=== PATIENT | female | born 1985 ===

== ENCOUNTER 2018-02-16 10:04 | Emergency (ER) | payer SELFPAY ==
[~2018-02-16] VITALS: Ht 160 cm; Wt 63.5 kg
[2018-02-16] MEDS ORDERED: KETOROLAC 30 MG/ML VIAL IVP ONE (10:45)
[2018-02-16] MEDS ORDERED: fentaNYL INJECTION 100 MCG/2 ML AMP IVP ONE (10:45)
--- NOTE | 2018-02-16 10:49 | ED Abdominal Pain ---
General Stated Complaint: ABDOMINAL PAIN Source of Information: Patient Exam Limitations: No Limitations History of Present Illness Date Seen by Provider: Feb 16, 2018 Time Seen by Provider: 10:47 Initial Comments To ER with left lower quadrant abdominal pain that began yesterday. The pain radiates down the left leg when she is walking. She has severe pain with urination. She also states that she has troubles with constipation and feels as though when she has a bowel movement she needs to have another one but cannot get any more stool to come out. She denies fevers chills nausea or vomiting. No history of this and no injury. Timing/Duration: 1-2 Days Severity/Quality: Moderate Location: LLQ Radiation: No Radiation Associated Symptoms: No Nausea/Vomiting Allergies and Home Medications Allergies Coded Allergies: No Known Drug Allergies (Unverified , 02/16/18) Home Medications Phenazopyridine HCl 100 Mg Tablet, 100 MG PO TID Prescribed by: EVA DICKEY on 02/16/18 1121 Sulfamethoxazole/Trimethoprim 1 Each Tablet, 1 EACH PO BID Prescribed by: EVA DICKEY on 02/16/18 1121 Patient Home Medication List Home Medication List Reviewed: Yes Review of Systems Review of Systems Constitutional: see HPI; No chills, No fever EENTM: No Symptoms Reported Respiratory: No Symptoms Reported Cardiovascular: No Symptoms Reported Gastrointestinal: See HPI, Abdominal Pain, Constipated; Denies Diarrhea, Denies Nausea, Denies Vomiting Genitourinary: No Symptoms Reported Musculoskeletal: no symptoms reported Skin: no symptoms reported Psychiatric/Neurological: No Symptoms Reported Endocrine: No Symptoms Reported Physical Exam Vital Signs Vital Signs - First Documented 02/16/18 10:30 Temp 99.4 Pulse 98 Resp 16 B/P (MAP) 141/83 (102) Pulse Ox 100 O2 Delivery Room Air Capillary Refill : Height/Weight/BMI Height: '" Weight: lbs. oz. kg; BMI Method: General Appearance: WD/WN, no apparent distress HEENT: PERRL/EOMI, normal ENT inspection Neck: non-tender, full range of motion Respiratory: no respiratory distress, no accessory muscle use Gastrointestinal: normal bowel sounds, soft, tenderness (left suprapubic) Extremities: normal range of motion, non-tender Neurologic/Psychiatric: alert, normal mood/affect, oriented x 3 Skin: normal color Progress/Results/Core Measures Results/Orders Lab Results Laboratory Tests Test 02/16/18 10:45 02/16/18 10:49 Range/Units White Blood Count 9.2 4.3-11.0 10^3/uL Red Blood Count 4.22 L 4.35-5.85 10^6/uL Hemoglobin 13.1 11.5-16.0 G/DL Hematocrit 38 35-52 % Mean Corpuscular Volume 90 80-99 FL Mean Corpuscular Hemoglobin 31 25-34 PG Mean Corpuscular Hemoglobin Concent 34 32-36 G/DL Red Cell Distribution Width 12.4 10.0-14.5 % Platelet Count 351 130-400 10^3/uL Mean Platelet Volume 9.3 7.4-10.4 FL Neutrophils (%) (Auto) 78 H 42-75 % Lymphocytes (%) (Auto) 16 12-44 % Monocytes (%) (Auto) 5 0-12 % Eosinophils (%) (Auto) 0 0-10 % Basophils (%) (Auto) 0 0-10 % Neutrophils # (Auto) 7.1 1.8-7.8 X 10^3 Lymphocytes # (Auto) 1.5 1.0-4.0 X 10^3 Monocytes # (Auto) 0.5 0.0-1.0 X 10^3 Eosinophils # (Auto) 0.0 0.0-0.3 10^3/uL Basophils # (Auto) 0.0 0.0-0.1 10^3/uL Sodium Level 138 135-145 MMOL/L Potassium Level 3.5 L 3.6-5.0 MMOL/L Chloride Level 105 98-107 MMOL/L Carbon Dioxide Level 19 L 21-32 MMOL/L Anion Gap 14 5-14 MMOL/L Blood Urea Nitrogen 7 7-18 MG/DL Creatinine 0.69 0.60-1.30 MG/DL Estimat Glomerular Filtration Rate > 60 BUN/Creatinine Ratio 10 Glucose Level 117 H 70-105 MG/DL Calcium Level 9.8 8.5-10.1 MG/DL Corrected Calcium 8.5-10.1 MG/DL Total Bilirubin 0.6 0.1-1.0 MG/DL Aspartate Amino Transf (AST/SGOT) 22 5-34 U/L Alanine Aminotransferase (ALT/SGPT) 35 0-55 U/L Alkaline Phosphatase 126 40-136 U/L Total Protein 8.9 H 6.4-8.2 GM/DL Albumin 5.1 H 3.2-4.5 GM/DL Serum Test, Qualitative NEGATIVE NEGATIVE Urine Color THIERRY H Urine Clarity CLEAR Urine pH 6 5-9 Urine Specific Oak 1.020 1.016-1.022 Urine Protein 2+ H NEGATIVE Urine Glucose (UA) NEGATIVE NEGATIVE Urine Ketones 2+ H NEGATIVE Urine Nitrite NEGATIVE NEGATIVE Urine Bilirubin NEGATIVE NEGATIVE Urine Urobilinogen 1 NORMAL MG/DL Urine Leukocyte Esterase 3+ H NEGATIVE Urine RBC (Auto) 2+ H NEGATIVE Urine RBC RARE /HPF Urine WBC 25-50 H /HPF Urine Squamous Epithelial Cells 5-10 /HPF Urine Crystals NONE /LPF Urine Bacteria MODERATE H /HPF Urine Casts NONE /LPF Urine Mucus SMALL H /LPF Urine Culture Indicated YES My Orders Orders - EVA DICKEY APRN Cbc With Automated Diff (02/16/18 10:44) Comprehensive Metabolic Panel (02/16/18 10:44) Ua Culture If Indicated (02/16/18 10:44) Hcg,Qualitative Serum (02/16/18 10:44) Iv Heplock-Insert (Order) (02/16/18 10:44) Ketorolac Injection (Toradol Injection) (02/16/18 10:45) Fentanyl Injection (Sublimaze Injection (02/16/18 10:45) Ct Abd/Pelvis Wo(Kidney Stone) (02/16/18 10:44) Urine Culture (02/16/18 10:49) Ceftriaxone For Iv Use (Rocephin For I (02/16/18 11:30) Medications Given in ED Current Medications Medications Dose Ordered Sig/Arielle Route Start Time Stop Time Status Last Admin Dose Admin Fentanyl Citrate 50 mcg ONCE ONCE IVP 02/16/18 10:45 02/16/18 10:47 DC 02/16/18 11:09 50 MCG Ketorolac Tromethamine 30 mg ONCE ONCE IVP 02/16/18 10:45 02/16/18 10:47 DC 02/16/18 11:09 30 MG Vital Signs/I&O 02/16/18 10:30 Temp 99.4 Pulse 98 Resp 16 B/P (MAP) 141/83 (102) Pulse Ox 100 O2 Delivery Room Air Diagnostic Imaging Diagonstic Imaging: CT Comments NAME: [facility] REC#: [id number] PT STATUS: REG ER : 1985 PHYSICIAN: EVA DICKEY APRN ADMIT DATE: 02/16/18/ER Draft Date of Exam:02/16/18 CT ABD/PELVIS WO(KIDNEY STONE) PROCEDURE: CT urinary tract, rule out kidney stone. TECHNIQUE: Multiple contiguous axial images were obtained through the abdomen and pelvis without the use of intravenous contrast. INDICATION: Abdominal pain. No prior studies are available for comparison. The lung bases are clear. The liver demonstrates diffuse low density consistent with hepatic steatosis. No discrete liver mass is identified. The gallbladder is unremarkable. The pancreas and spleen are unremarkable. There is moderate motion artifact on the study. No adrenal mass is seen. No renal calculi are detected. No definite ureteral or bladder calculi are seen. The bladder is decompressed. There is a cyst in the right adnexa measuring 3.9 cm, likely ovarian. Trace free pelvic fluid is noted. The bowel loops are normal caliber, without evidence of obstruction. The appendix is visualized and unremarkable. There is no abdominal ascites. No inflammatory process is seen. IMPRESSION: 1. Hepatic steatosis. 2. No evidence of urinary tract calculi or obstruction. 3. Right ovarian cyst. Dictated on workstation # [id number] Dict: 02/16/18 1111 Trans: 02/16/18 1116 MARILEE [id number] Interpreted by: SAIRA GARDINER MD Electronically signed by: Drew Impression Primary Impression: Urinary tract infection Qualified Codes: N30.00 - Acute cystitis without hematuria Disposition: HOME, SELF-CARE Condition: Stable Departure-Patient Inst. Decision time for Depature: 11:20 Referrals: UNKNOWN (PCP) Primary Care Physician Patient Instructions: Urinary Tract Infection, Adult (DC) Add. Discharge Instructions: 1. Return to ER for any concerns 2. Antibiotics as directed 3. Follow-up with your doctor next week Scripts Sulfamethoxazole/Trimethoprim (Bactrim Ds Tablet) 1 Each Tablet 1 EACH PO BID, #10 TAB Prov: EVA DICKEY CAN PUSHER 02/16/18 Phenazopyridine HCl (Pyridium) 100 Mg Tablet 100 MG PO TID, #6 TAB Prov: EVA DICKEY APRN 02/16/18 EVA DICKEY APRN Feb 16, 2018 10:49
[2018-02-16 10:54] LABS: BASOPHILS % (AUTO) 0 % (0-10); EOSINOPHILS % (AUTO) 0 % (0-10); HEMATOCRIT 38 % (35-52); HEMOGLOBIN 13.1 G/DL (11.5-16.0); LYMPHOCYTES # (AUTO) 1.5 X 10^3 (1.0-4.0); LYMPHOCYTES % (AUTO) 16 % (12-44); MEAN CORPUSCULAR HEMOGLOBIN 31 PG (25-34); MEAN CORPUSCULAR HGB CONC 34 G/DL (32-36); MEAN CORPUSCULAR VOLUME 90 FL (80-99); MEAN PLATELET VOLUME 9.3 FL (7.4-10.4); MONOCYTES # (AUTO) 0.5 X 10^3 (0.0-1.0); MONOCYTES % (AUTO) 5 % (0-12); NEUTROPHILS # (AUTO) 7.1 X 10^3 (1.8-7.8); NEUTROPHILS % (AUTO) 78 % (42-75); PLATELET COUNT 351 10^3/uL (130-400); RED BLOOD COUNT 4.22 10^6/uL (4.35-5.85); RED CELL DISTRIBUTION WIDTH 12.4 % (10.0-14.5); WHITE BLOOD COUNT 9.2 10^3/uL (4.3-11.0)
[2018-02-16 10:55] LABS: BILIRUBIN,URINE NEGATIVE (NEGATIVE); CLARITY,URINE CLEAR; COLOR,URINE AMBER; GLUCOSE, URINE (UA) NEGATIVE (NEGATIVE); KETONES,URINE 2+ (NEGATIVE); LEUKOCYTE ESTERASE ,URINE 3+ (NEGATIVE); NITRITE,URINE NEGATIVE (NEGATIVE); PH,URINE 6 (5-9); PROTEIN,URINE 2+ (NEGATIVE); UROBILINOGEN,URINE 1 MG/DL (NORMAL)
[2018-02-16 11:07] LABS: BACTERIA,URINE MODERATE /HPF; RBC,URINE RARE /HPF; WBC,URINE 25-50 /HPF
[2018-02-16 11:14] LABS: ALANINE AMINOTRANSFERASE 35 U/L (0-55); ALBUMIN 5.1 GM/DL (3.2-4.5); ALKALINE PHOSPHATASE 126 U/L (40-136); BILIRUBIN,TOTAL 0.6 MG/DL (0.1-1.0); BUN/CREATININE RATIO 10; CALCIUM 9.8 MG/DL (8.5-10.1); CARBON DIOXIDE 19 MMOL/L (21-32); CHLORIDE 105 MMOL/L (98-107); CREATININE SERUM 0.69 MG/DL (0.60-1.30); GFR ESTIMATED > 60; GLUCOSE 117 MG/DL (70-105); POTASSIUM 3.5 MMOL/L (3.6-5.0); SODIUM 138 MMOL/L (135-145); TOTAL PROTEIN 8.9 GM/DL (6.4-8.2)
--- NOTE | 2018-02-16 11:17 | Diagnostic Imaging Report ---
PROCEDURE: CT urinary tract, rule out kidney stone. TECHNIQUE: Multiple contiguous axial images were obtained through the abdomen and pelvis without the use of intravenous contrast. INDICATION: Abdominal pain. No prior studies are available for comparison. The lung bases are clear. The liver demonstrates diffuse low density consistent with hepatic steatosis. No discrete liver mass is identified. The gallbladder is unremarkable. The pancreas and spleen are unremarkable. There is moderate motion artifact on the study. No adrenal mass is seen. No renal calculi are detected. No definite ureteral or bladder calculi are seen. The bladder is decompressed. There is a cyst in the right adnexa measuring 3.9 cm, likely ovarian. Trace free pelvic fluid is noted. The bowel loops are normal caliber, without evidence of obstruction. The appendix is visualized and unremarkable. There is no abdominal ascites. No inflammatory process is seen. IMPRESSION: 1. Hepatic steatosis. 2. No evidence of urinary tract calculi or obstruction. 3. Right ovarian cyst. Dictated by: Dictated on workstation # [id number]
[2018-02-16] MEDS ORDERED: SULF1TAB35 PO (11:21)
[2018-02-16] MEDS ORDERED: PHEN-639 PO (11:21)
[2018-02-16] MEDS ORDERED: PHENAZOPYRIDINE 100 MG (PYRIDIUM) TABLET PO ONE (11:30)
[2018-02-16] MEDS ORDERED: cefTRIAXone FOR IV USE 1,000 MG in NS (IVPB) 50 ML IV ONE (11:30)
[2018-02-16 12:05] VITALS: BP 101/56
== END 2018-02-16 12:05 | disposition home or self-care (01) ==
LOC: ER 10:07
DX: N39.0 Urinary tract infection, site not specified (principal)
CPT/HCPCS: 36415; 74176; 80053; 81000; 84703; 85025; 87088; 96365; 96375